=== PATIENT | female | born 2000 | race American Indian/Alaskan Native ===

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

== ENCOUNTER 2021-06-04 02:52 | Inpatient (IN) | payer OTHER ==
[~2021-06-04] VITALS: Ht 165.1 cm; Wt 74.4 kg
[~2021-06-04 02:52] MED LIST changes: +ONDANSETRON ODT8 MG PO; +REGLAN10 MG PO
--- NOTE | 2021-06-04 09:16 | PR ---
[facility] [address] [place], [place] [address] Signed Progress Notes IP Datetime Report Generated by IVELISSE: 06/04/2021 09:15 PROGRESS NOTES: [id number] Impression: Normal Progression of Labor; Reassuring Heart Rate Procedures: Intrauterine Pressure Catheter; Amnio Infusion Other Plans: Amnioinfusion Informed Consent Obtain: Vaginal Delivery; Section Delivery; Risks, Benefits and Alternatives Discussed Other Informed Consents: Amnioinfusion VITAL SIGNS: [id number] Vital Signs: Reviewed; Within Normal Limits EXAM: [id number] Dilatation: 4.0 Effacement: 70 Station: -2 Contractions: q 2-3 min MEMBRANES: [id number] Amniotic Fluid Color: Clear Comments: Pt seen and examined. Recurrent variabile decelerations noted. IUPC placed w/out difficulty. Recommended amnioinfusion. Reviewed in detail and all questions answred. Discussed indications for if needed, but anticipate . All questions answered. FETUS A: [id number] FHR Baseline: 135 Variability: Moderate 6-25bpm Accelerations: 15X15 Decelerations: Prolonged FHR Category: Category II Presentation: Vertex Comments on Fetus A: No evidence of metabolic FETUS B: [id number] Signing Physician: Abhijit Ochoa DO Copies: ~ *Electronically Signed* 06/04/21 0915 ABHIJIT OCHOA DO PATIENT NAME: DEBBIE ANTUNEZ PROGRESS NOTE DATE OF : 01 PHYSICIAN: ABHIJIT OCHOA DO RPT #: [id number] REPORT IS CONFIDENTIAL AND NOT TO BE RELEASED WITHOUT AUTHORIZATION
--- NOTE | 2021-06-04 10:20 | PR ---
[facility] [address] [place], [place] [address] Signed Progress Notes IP Datetime Report Generated by CPN: 06/04/2021 10:20 PROGRESS NOTES: [id number] Impression: Non-reassuring Heart Rate Procedures: Sterile Vag Exam Plan: Deliver- Section Other Plans: Amnioinfusion Informed Consent Obtain: Section Delivery Other Informed Consents: Amnioinfusion VITAL SIGNS: [id number] Vital Signs: Reviewed; Within Normal Limits EXAM: [id number] Dilatation: 4.0 Effacement: 80 Station: -2 Contractions: q 2-3 min MEMBRANES: [id number] Amniotic Fluid Color: Clear Comments: Pt seen and examined. Pt w/ continued variabile decelerations despite amnioinfusion, and now has developed tachycardia. Cx unchanged. Discussed FHT and decelerations in detail w/ pt and recommended primary LTCS. Risks, benefits, and alternatives discussed in detail. Pt understands and agrees. Consents signed. Ancef 2 g IV and azithromycin 500mg IV ordered. OR crew and anesthesia in house. All questions answered FETUS A: [id number] FHR Baseline: 135 Variability: Moderate 6-25bpm Accelerations: 15X15 Decelerations: Prolonged FHR Category: Category II Presentation: Vertex Comments on Fetus A: No evidence of metabolic FETUS B: [id number] Signing Physician: Abhijit Ochoa DO Copies: *Electronically Signed* 06/04/21 1020 ABHIJIT OCHOA DO PATIENT NAME: DEBBIE ANTUNEZ PROGRESS NOTE DATE OF : 01 PHYSICIAN: ABHIJIT OCHOA DO RPT #: [id number] REPORT IS CONFIDENTIAL AND NOT TO BE RELEASED WITHOUT AUTHORIZATION [facility] [address] [facility] [place] [address] Signed ~ *Electronically Signed* 06/04/21 1020 ABHIJIT OCHOA DO PATIENT NAME: DEBBIE ANTUNEZ PROGRESS NOTE DATE OF : 01 PHYSICIAN: ABHIJIT OCHOA DO RPT #: [id number] REPORT IS CONFIDENTIAL AND NOT TO BE RELEASED WITHOUT AUTHORIZATION
--- NOTE | 2021-06-05 08:12 | PR ---
[facility] [address] [place], [place] [address] Signed PP Progress Notes Datetime Report Generated by CPN: 06/05/2021 08:12 SUBJECTIVE: [id number] Pain: Within Normal Limits Nausea/Vomiting: Denies Flatus: Yes Bowel Movement: No Vital Signs: [id number] Vital Signs: Reviewed EXAM: Ongoing Cardiovascular: Normal Respiratory: Normal Abdomen/Uterus: Normal Lochia: Not Done Vulva/Perineum: Not Done Breasts: Not Done CVA Tenderness: Normal Extremities: Normal Incision: Normal Progress: Normal Exam Comments: Fundus firm U-2 nontender. Incision dry and bandaged IMPRESSION/PLAN/PROCEDURES: [id number] Impression: Normal Progression; Pain Plan: Continue Present Management Progress Notes: Pt seen and examined. Doing well. Positional headache possibly c/w spinal headache. No fevers/chills. Tolerating full diet. Has not ambulated and hernandes just removed. Normal lochia. well. C/O mild shoulder pain bilaterally. Plan continue routine / postoperative care. Anesthesia to evaluate for possible spinal headache. Hgb 9.4 Signing Physician: Abhijit Ochoa DO Copies: ~ *Electronically Signed* 06/05/21811 ABHIJIT OCHOA DO PATIENT NAME: DEBBIE ANTUNEZ PROGRESS NOTE DATE OF : 01 PHYSICIAN: ABHIJIT OCHOA #: [id number] REPORT IS CONFIDENTIAL AND NOT TO BE RELEASED WITHOUT AUTHORIZATION
--- NOTE | 2021-06-06 08:44 | PR ---
[facility] [address] [place], [place] [address] Signed PP Progress Notes Datetime Report Generated by CPN: 06/06/2021 08:44 SUBJECTIVE: [id number] Pain: Within Normal Limits Nausea/Vomiting: Denies Flatus: Yes Bowel Movement: Yes Vital Signs: [id number] Vital Signs: Reviewed; Within Normal Limits EXAM: Ongoing Cardiovascular: Normal Respiratory: Normal Abdomen/Uterus: Normal Lochia: Normal Vulva/Perineum: Not Done Breasts: Not Done CVA Tenderness: Normal Extremities: Normal Incision: Normal Progress: Normal Exam Comments: Fundus firm U-2 nontender. Incision healing nicely IMPRESSION/PLAN/PROCEDURES: [id number] Impression: Normal Progression Plan: Remove Bekah; Discharge Progress Notes: Pt seen and examined. Doing well. Ambulating, voiding, and tolerating full diet. Pain and lochia minimal. . No fevers/chills/ lightheadedness, or other concerns. Desires d/c home today. Planning Nexplanon for contraception. D/C instructions and medications reviewed in detail. Signing Physician: Abhijit Ochoa DO Copies: ~ *Electronically Signed* 06/06/21 0844 ABHIJIT OCHOA DO PATIENT NAME: DEBBIE ANTUNEZ PROGRESS NOTE DATE OF : 01 PHYSICIAN: ABHIJIT OCHOA DO RPT #: [id number] REPORT IS CONFIDENTIAL AND NOT TO BE RELEASED WITHOUT AUTHORIZATION
== END 2021-06-06 11:30 | disposition home or self-care (01) | DRG 788 ==
LOC: FBCO 02:52 → FBC 03:17
PROVIDERS: ADMIT Obstetrics & Gynecology; ATTEND Obstetrics & Gynecology
PROC: 10H07YZ Insertion of Other Device into Products of Conception, Via Natural or Artificial Opening (ICD-10-PCS; 2021-06-04)
PROC: 10D00Z1 Extraction of Products of Conception, Low, Open Approach (ICD-10-PCS; principal; 2021-06-04 10:30)
DX: O76 Abnormality in fetal heart rate and rhythm complicating labor and delivery (principal); Z3A.39 39 weeks gestation of pregnancy; Z37.0 Single live birth; Z20.822 Contact with and (suspected) exposure to COVID-19; O99.824 Streptococcus B carrier state complicating childbirth; Z86.16 Personal history of COVID-19; Z79.899 Other long term (current) drug therapy
CPT/HCPCS: 01961; 36415; 82803; 85027; 86850; 86900; 86901; A9270; C9803; J0456; J0690; J1100; J1650; J1885; J2001; J2250; J2274; J2405; J2540; J2550; J2590; J2795; J3010; J7030; J7121; U0003

== ENCOUNTER 2024-07-18 07:58 | Inpatient (IN) | payer OTHER ==
[~2024-07-18] VITALS: Ht 165.1 cm; Wt 88.9 kg
[2024-07-29] MEDS ORDERED: SOD+POT BICARB/CITRIC ACID 2 EA TABLET.EFF PO ONE (05:30)
[2024-07-29] MEDS ORDERED: LACTATED RINGER'S 1,000 ML IV PRN (05:30)
[2024-07-29 05:52] LABS: AMPHETAMINES, URINE NEGATIVE (NEGATIVE); BARBITURATES, URINE NEGATIVE (NEGATIVE); BENZODIAZEPINE, URINE NEGATIVE (NEGATIVE); BUPRENORPHINE, URINE NEGATIVE (NEGATIVE); CANNABINOID, URINE POSITIVE (NEGATIVE); COCAINE, URINE NEGATIVE (NEGATIVE); ECSTASY, URINE NEGATIVE (NEGATIVE); FENTANYL, URINE NEGATIVE (NEGATIVE); METHADONE, URINE NEGATIVE (NEGATIVE); OPIATES, URINE NEGATIVE (NEGATIVE); OXYCODONE, URINE NEGATIVE (NEGATIVE); PHENCYCLIDINE, URINE NEGATIVE (NEGATIVE)
[2024-07-29 06:06] LABS: HEMATOCRIT 34.3 % (34.1-44.9); HEMOGLOBIN 10.8 g/dL (11.2-15.7); MCH 25.5 PG (25.6-32.2); MCHC 31.5 g/dL (32.2-35.5); MCV 80.9 fL (79.4-94.8); RBC 4.24 M/uL (3.93-5.22)
[2024-07-29 06:46] LABS: ABO O; ANTIBODY SCREEN NEGATIVE; RH POSITIVE
[2024-07-29 06:49] VITALS: BP 107/57
[2024-07-29] MEDS ORDERED: fentaNYL citrate 100 MCG/2 ML VIAL ONE (07:10)
[2024-07-29] MEDS ORDERED: MORPHINE SULFATE 1 MG/ML VIAL ONE (07:10)
[2024-07-29] MEDS ORDERED: BUPIVACAINE 0.75% IN DEXTROSE 2 ML AMP ONE (07:11)
[2024-07-29] MEDS ORDERED: SODIUM CHLORIDE 0.9% 20 ML IV ONE (07:11)
[2024-07-29] MEDS ORDERED: Ropivacaine HCl 0.5% 30 ML VIAL ONE (07:11)
[2024-07-29] MEDS ORDERED: LIDOCAINE HCL 2% 5 ML SDV ONE (07:11)
[2024-07-29] MEDS ORDERED: ondansetron HCL 4 MG/2 ML VIAL ONE (07:13)
[2024-07-29] MEDS ORDERED: CEFAZOLIN SODIUM 2 GM/20 ML SYR IV ONE (07:15)
[2024-07-29] MEDS ORDERED: OXYTOCIN 10 UNITS/ML VIAL ONE (07:16)
[2024-07-29] MEDS ORDERED: dexmedeTOMIDine HCl 200 MCG/2 ML VIAL ONE (07:25)
[2024-07-29] MEDS ORDERED: DEXAMETHASONE SOD PHOS 4 MG/ML VIAL ONE (07:25)
[2024-07-29] MEDS ORDERED: PHENYLEPHRINE HCL 10 MG/ML VIAL ONE (07:41)
[2024-07-29] MEDS ORDERED: KETOROLAC TROMETHAMINE 30 MG/ML VIAL IV PRN ×2 (08:15)
[2024-07-29] MEDS ORDERED: ondansetron HCL 4 MG/2 ML VIAL IV PRN ×3 (08:15→09:00)
[2024-07-29] MEDS ORDERED: fentaNYL citrate 50 MCG/ML SDV IV PRN (08:15)
[2024-07-29] MEDS ORDERED: diphenhydrAMINE HCL 25 MG CAP PO PRN (08:15)
[2024-07-29] MEDS ORDERED: IBLOOD GLUCOSE TEST STRIP 1 EA TEST VI PRN (08:15)
[2024-07-29] MEDS ORDERED: NALOXONE HCL 0.4 MG SYR IV PRN ×2 (08:15)
[2024-07-29] MEDS ORDERED: HYDROmorphone HCL 1 MG/ML SYR IV PRN (08:15)
[2024-07-29] MEDS ORDERED: diphenhydrAMINE HCL 50 MG/ML VIAL IV PRN ×2 (08:15)
[2024-07-29] MEDS ORDERED: PROCHLORPERAZINE EDISYLATE 10 MG/2 ML VIAL IV PRN (09:00)
[2024-07-29] MEDS ORDERED: PROMETHAZINE HCL 25 MG TAB PO PRN (09:00)
[2024-07-29] MEDS ORDERED: SENNOSIDES/DOCUSATE 1 EA TAB PO SCH (09:00)
[2024-07-29] MEDS ORDERED: PROMETHAZINE HCL 25 MG SUPP PR PRN (09:00)
[2024-07-29] MEDS ORDERED: HYDROCODONE/ACETA 5/325 TAB PO PRN (09:00)
[2024-07-29] MEDS ORDERED: LIDOCAINE 2% VISCOUS 6 ML SYR TOP ONE (09:00)
[2024-07-29] MEDS ORDERED: bisacodyL 10 MG SUPP PR PRN (09:00)
[2024-07-29] MEDS ORDERED: OXYTOCIN/0.9 % SODIUM CHLORIDE 500 ML IV SCH (09:00)
[2024-07-29] MEDS ORDERED: METOCLOPRAMIDE HCL 10 MG/2 ML SDV IV PRN (09:00)
[2024-07-29] MEDS ORDERED: OXYCODONE HCL 5 MG TAB PO PRN (09:00)
[2024-07-29] MEDS ORDERED: LACTATED RINGER'S 1,000 ML IV SCH (09:02)
--- NOTE | 2024-07-29 09:09 | NUR ---
07/29/24 0909 Adelaida Duarte 0854-PATIENT ARRIVED TO [facility] ROOM 104 FOR RECOVERY. PATIENT AWAKE DENIES PAIN OR NAUSEA. SPINAL LEVEL L1. VANN CATHETER DRAINING YELLOW URINE. DAD AT BEDSIDE. MOM HOLDING BABY TO BREAST. SR HR 60'S 02 SAT 94% RR EVEN. IV TO RIGHT ARM CDI INFUSING WITH LR 20 PITOCIN. 0900-PATIENTS HOB ELEVATED 30 DEGREES REPORTS FEELING DIZZY. HOB LOWERED COOL WASHCLOTH GIVEN. BP 95/52 0909-PATIENT AWAKE FEEDIG BABY TO RIGHT BREAST DENIES PAIN OR NAUSEA. RA 94% SR HR 60.
[2024-07-29 09:29] VITALS: BP 96/52
[2024-07-29] MEDS ORDERED: SIMETHICONE 80 MG CHEW PO SCH (11:00)
[2024-07-29] MEDS ORDERED: IBUPROFEN 600 MG TAB PO SCH ×2 (12:00→14:00)
[2024-07-29] MEDS ORDERED: ACETAMINOPHEN 325 MG TAB PO SCH (14:00)
[2024-07-30] MEDS ORDERED: IBUPROFEN 600 MG TAB PO SCH (02:00)
[2024-07-30] MEDS ORDERED: LACTATED RINGER'S 1,000 ML IV SCH (05:00)
--- NOTE | 2024-07-30 07:59 | OR ---
[address] [address] Signed DATE OF OPERATION: 07/29/2024 SURGEON: Ricky Thomason MD PREOPERATIVE DIAGNOSES: 1. Intrauterine at 39 and 3/7th weeks. 2. Prior section, declines vaginal after . PROCEDURE: Repeat low-transverse . FINDINGS: Vigorous male infant, Apgars of 8 and 9. Weight yet to be determined. Normal uterus, tubes, and ovaries. ANESTHESIA: Spinal. ACCREDITATION MANAGER: None. QUANTITATIVE BLOOD LOSS: 524 mL. IV FLUID: 1200 mL crystalloid. URINE OUTPUT: 200 mL clear urine. DRAINS: Elliott to gravity. SPECIMENS: None. COMPLICATIONS: None apparent. COUNTS: Electronically Signed By: RICKY THOMASON MD 07/30/24 0759 PATIENT NAME: DEBBIE ANTUNEZ OPERATIVE REPORT DATE OF : 01 REPORT #: [id number] PHYSICIAN: RICKY THOMASON MD PCP: [facility] REPORT IS CONFIDENTIAL AND NOT TO BE RELEASED WITHOUT AUTHORIZATION [address] [address] Signed Correct x2. TECHNIQUE IN DETAIL: With informed consent, patient was taken to the operating room where spinal anesthetic was placed. She was given intravenous Ancef per protocol 2 g. Lower extremities were placed in SCD pneumatic compression devices for DVT prophylaxis. Once spinal placed she was prepped and draped in sterile fashion and time-out was performed per protocol. Under adequate analgesia, an approximately 7 inch Pfannenstiel skin incision was made and sharp dissection was carried down to the layer of the rectus fascia which was nicked in the midline. The fascial nag was enlarged bilaterally using sharp dissection. Rectus muscles were then taken down from the fascia using a combination of sharp and blunt dissection both superiorly and inferiorly. The rectus muscles were in the midline at the most superior aspect using careful dissection with the assistance of elevation using hemostats and slow entry using Metzenbaum scissors. Once we entered the peritoneum finger sweep was performed to ensure no adhesions to the anterior abdominal wall, this was found to be clear. We then the rectus muscles with sharp dissection first superiorly and then inferiorly. In the inferior direction careful attention was paid to the location of the urinary bladder. Once we had the rectus muscle completely, blunt dissection was used to enlarge the peritoneal opening. A bladder blade was then inserted and using a scalpel, a low transverse uterine incision was made. With an incision in the serosa of the bladder was pushed down a little bit as it was running slightly high. We then used a scalpel to continue the hysterotomy incision. The uterine incision was enlarged with blunt dissection in a superior to inferior direction. The surgeon's hand was then placed into the lower uterine segment. head was elevated and delivered with fundal pressure. There was a nuchal cord x1 which was manually reduced. Shoulders delivered with traction under the axilla and fundal pressure. With delivery of the baby after approximately 10 seconds cord was clamped x2 and cut. Baby was handed to the resuscitation team. The placenta delivered intact with a three-vessel cord using gentle traction and fundal massage. There was excellent uterine tone with intravenous oxytocin and fundal massage. Uterus was externalized and the uterus was noted to be arcuate. The uterine cavity was curetted with laparotomy sponges removing all membranes and products of conception. adnexa with the above-mentioned findings being noted. Hysterotomy site was closed using 0 Monocryl in a running locked fashion. A second imbricating layer of 0 Monocryl was also placed in a running fashion. Good hemostasis of the uterine incision was noted at this time. We then cleared the posterior cul-de-sac of all clot and product of conception. Hysterotomy site was inspected again and there was an area of oozing in the left aspect which was rendered hemostatic with an 0 Monocryl Electronically Signed By: RICKY THOMASON MD 07/30/24 0759 PATIENT NAME: DEBBIE ANTUNEZ OPERATIVE REPORT DATE OF : 01 REPORT #: [id number] PHYSICIAN: RICKY THOMASON MD PCP: [facility] REPORT IS CONFIDENTIAL AND NOT TO BE RELEASED WITHOUT AUTHORIZATION [facility] [address] [place] [address] Signed [id number] stitch. The uterus was then gently returned to the pelvis. The left and right pericolic gutters were examined and cleared of all blood and clot. The hysterotomy site and bladder flap and bladder were inspected again and again good hemostasis was noted. The rectus muscles and peritoneum were then reapproximated using 2-0 chromic in a running fashion. The rectus muscle bellies were then inspected and found to be hemostatic. The rectus fascia was closed using 0 Vicryl in a running fashion. Superficial incision was irrigated and rendered hemostatic with the electrocautery device. The subcutaneous tissue was reapproximated with 2-0 chromic in a running fashion. The skin was closed with the Insorb stapler device. Steri-Strips and Dermabond were then placed and a bandage was placed over the incision. The uterus was then expressed of all clot. DISPOSITION: The patient was taken through recovery room in stable condition. Ricky Thomason MD BB/MODL /[id number] Copies: ~ Electronically Signed By: RICKY THOMASON MD 07/30/24 0759 PATIENT NAME: DEBBIE ANTUNEZ OPERATIVE REPORT DATE OF : 01 REPORT #: [id number] PHYSICIAN: RICKY THOMASON MD PCP: [facility] REPORT IS CONFIDENTIAL AND NOT TO BE RELEASED WITHOUT AUTHORIZATION
[2024-07-30] MEDS ORDERED: SERTRALINE HCL 50 MG TAB PO SCH (09:00)
--- NOTE | 2024-07-31 08:27 | PR ---
[facility] [address] [place], [place] [address] Signed PP Progress Notes Datetime Report Generated by CPN: 07/31/2024 08:27 SUBJECTIVE: [id number] Pain: Within Normal Limits Nausea/Vomiting: Denies Flatus: No Bowel Movement: Yes Vital Signs: [id number] Vital Signs: Reviewed; Within Normal Limits EXAM: Ongoing Cardiovascular: Normal Respiratory: Normal Abdomen/Uterus: Normal Lochia: Normal Vulva/Perineum: Not Done Breasts: Not Done CVA Tenderness: Normal Extremities: Normal Incision: Normal Progress: Normal Exam Comments: Fundus firm U-2 nontender. Incision well healing w/ steri's in place. IMPRESSION/PLAN/PROCEDURES: [id number] Impression: Normal Progression Plan: Discharge Procedures: None Progress Notes: Pt seen and examined. Doing well. Ambulating, voiding, and tolerating full diet. Pain and lochia minimal. . No fevers/chills. Pt w/ an episode of epigastric pain that resolved immediately w/ vomiting. Pt reports long history of this but was worse during . Has never had endoscopy or GI workup. Recommended discussing further at next visit and with PCP. Discussed symptoms may be consistent w/ GERD or esophogeal spasm. Pt understands and agrees. Reviewed d/c instructions, medications and course. Undecided on pp contraception. Signing Physician: Abhijit Ochoa DO Copies: ~ *Electronically Signed* 07/31/24 1182 ABHIJIT OCHOA (ADELA) DO PATIENT NAME: DEBBIE ANTUNEZ PROGRESS NOTE DATE OF : 01 PHYSICIAN: ABHIJIT OCHOA (JD) DO RPT #: [id number] REPORT IS CONFIDENTIAL AND NOT TO BE RELEASED WITHOUT AUTHORIZATION
== END 2024-07-31 11:45 | disposition home or self-care (01) | DRG 788 ==
LOC: DSVR 07-27 07:30 → FBC 07-29 05:12 → DSVR 07-29 07:30 → FBC 07-31 11:45
PROVIDERS: ADMIT Obstetrics & Gynecology; ATTEND Obstetrics & Gynecology
PROC: 10D00Z1 Extraction of Products of Conception, Low, Open Approach (ICD-10-PCS; principal; 2024-07-29 07:30)
DX: O34.211 Maternal care for low transverse scar from previous cesarean delivery (principal); O99.824 Streptococcus B carrier state complicating childbirth; O99.344 Other mental disorders complicating childbirth; F41.9 Anxiety disorder, unspecified; F32.A Depression, unspecified; Z87.891 Personal history of nicotine dependence; Z3A.39 39 weeks gestation of pregnancy; Z37.0 Single live birth
CPT/HCPCS: 01961; 36415; 80307; 85027; 86850; 86900; 86901; A9270; J0690; J1100; J2003; J2274; J2371; J2405; J2590; J2795; J3010; J7121

== ENCOUNTER 2024-10-13 15:19 | Emergency (ER) | payer OTHER ==
[~2024-10-13] VITALS: Ht 152.4 cm; Wt 80.4 kg
[2024-10-13] MEDS ORDERED: CEPHALEXIN500 M1 PO (16:14)
[2024-10-13] MEDS ORDERED: CEPHALEXIN MONOHYDRATE 500 MG CAP PO ONE (16:30)
[2024-10-13 18:25] VITALS: BP 132/85
== END 2024-10-13 18:25 | disposition home or self-care (01) ==
LOC: ED 15:19
DX: S92.312B Displaced fracture of first metatarsal bone, left foot, initial encounter for open fracture (principal); S92.332B Displaced fracture of third metatarsal bone, left foot, initial encounter for open fracture; S92.02 Fracture of anterior process of calcaneus; V03.00XA Pedestrian on foot injured in collision with car, pick-up truck or van in nontraffic accident, initial encounter; Z87.891 Personal history of nicotine dependence; Z79.899 Other long term (current) drug therapy
CPT/HCPCS: 12002; 73630; 73700; 99284-25; A9270